=== PATIENT | female | born 1980 | race Caucasian/White ===

== ENCOUNTER 2024-07-21 09:30 | Emergency (ER) | payer BC ==
[2024-07-21 09:36] VITALS: BP 108/67; PULSE 80; RESP 20; TEMP 97.8
[2024-07-21 10:06] LABS: Basophils % (A) 1 %; Eosinophils # (A) 0.2 k/uL (0-0.7); Eosinophils % (A) 3 %; HCT 40.1 % (34.0-46.0); HGB 12.7 gm/dL (11.4-16.0); Lymphocytes # (A) 1.6 k/uL (1.0-4.8); Lymphocytes % (A) 25 %; MCH 27.9 pg (25.0-35.0); MCHC 31.7 g/dL (31.0-37.0); MCV 87.9 fL (80.0-100.0); Mean Platelet Volume 7.5; Monocytes # (A) 0.1 k/uL (0-1.0); Monocytes % (A) 2 %; Neutrophils # (A) 4.4 k/uL (1.3-7.7); Neutrophils % (A) 68 %; Platelet Count 341 k/uL (150-450); RBC 4.56 m/uL (3.80-5.40); RDW 13.6 % (11.5-15.5); WBC 6.5 k/uL (3.8-10.6)
[2024-07-21] MEDS: SODIUM CHLORIDE 0.9% 1,000 ML IV SCH (10:07)
[2024-07-21] MEDS: HYDROmorphone 0.5 MG/0.5 ML SYRINGE IVP STA ×2 (10:07→13:54)
[2024-07-21] MEDS: ONDANSETRON 4 MG/2 ML VIAL IVP STA ×2 (10:07→13:53)
[2024-07-21 10:28] LABS: ALT 45 U/L (4-34); AST 39 U/L (14-36); African American GFR (CKD) 77 (>60 ml/min/1.73 sqM); Albumin 4.4 g/dL (3.5-5.0); Alkaline Phosphatase 93 U/L (38-126); Anion Gap 14 mmol/L; Blood Urea Nitrogen 15 mg/dL (7-17); Calcium 9.5 mg/dL (8.4-10.2); Carbon Dioxide 26 mmol/L (22-30); Chloride 97 mmol/L (98-107); Glucose 134 mg/dL (74-99); Lipase 132 U/L (23-300); Non-African American GFR(CKD) 67 (>60 ml/min/1.73 sqM); Potassium 3.9 mmol/L (3.5-5.1); Sodium 137 mmol/L (137-145); Total Bilirubin 0.8 mg/dL (0.2-1.3); Total Protein 7.3 g/dL (6.3-8.2)
--- NOTE | 2024-07-21 10:31 | ED ---
Abdominal Pain HPI - General Source: patient, RN notes reviewed Mode of arrival: ambulatory Limitations: no limitations <Zhao Rosales - Last Filed: 07/21/24 16:03> <Lesley Ross - Last Filed: 07/25/24 21:47> - General Chief Complaint: Abdominal Pain Stated Complaint: abd pain,vomiting Time Seen by Provider: 07/21/24 09:36 - History of Present Illness Initial Comments: 43-year-old female presents emergency department chief complaint of severe right upper quadrant abdominal pain. Patient states she had a bout of this yesterday but it passed after vomiting. Patient states it started again this morning and states it has been on relentless. Patient states pain radiates. Shoulder back region. Patient denies any chest pain shortness of breath no prior abdominal surgeries denies any chance . No fevers or chills patient states she is very nauseated (Zhao Rosales) - Related Data Previous Rx's Medication Instructions Recorded Cephalexin [Keflex] 500 mg PO Q8HR #21 cap 07/21/24 Allergies Allergy/AdvReac Type Severity Reaction Status Date / Time nitrofurantoin Allergy Nausea & Verified 07/21/24 09:36 [From Macrobid] Vomiting Review of Systems ROS Other: All systems not noted in ROS Statement are negative. <Zhao Rosales - Last Filed: 07/21/24 16:03> ROS Other: All systems not noted in ROS Statement are negative. <Lesley Ross - Last Filed: 07/25/24 21:47> ROS Statement: Those systems with pertinent positive or pertinent negative responses have been documented in the HPI. Past Medical History Past Medical History: GERD/Reflux Additional Past Medical History / Comment(s): kidney stones Past Surgical History: Orthopedic Surgery Past Psychological History: Anxiety, Depression Smoking Status: Never smoker Past Alcohol Use History: Occasional Past Drug Use History: None Reported <Zhao Rosales - Last Filed: 07/21/24 16:03> General Exam Limitations: no limitations General appearance: alert, in no apparent distress Head exam: Present: atraumatic, normocephalic, normal inspection Respiratory exam: Present: normal lung sounds bilaterally. Absent: respiratory distress, wheezes, rales, rhonchi, stridor Cardiovascular Exam: Present: regular rate, normal rhythm, normal heart sounds. Absent: systolic murmur, diastolic murmur, rubs, gallop, clicks GI/Abdominal exam: Present: soft, tenderness, normal bowel sounds. Absent: distended, guarding, rebound, rigid Back exam: Absent: CVA tenderness (R), CVA tenderness (L) <Zhao Rosales - Last Filed: 07/21/24 16:03> Course <Zhao Rosales - Last Filed: 07/21/24 16:03> Vital Signs 07/21/24 09:32 Temperature 97.8 F Pulse Rate 80 Respiratory 20 Rate Blood Pressure 108/67 O2 Sat by Pulse 100 Oximetry - Reevaluation(s) Reevaluation #1: 07/21/24 15:49 Patient reevaluated after initial pain meds after seeing patient in triage hannah patient states she felt improved pending ultrasound and labs. (Zhao Rosales) Reevaluation #2: 07/21/24 15:49 Patient updated on ultrasound findings stating that there was not any significant findings other than dilated common bile duct and CT will be performed. Patient's pain is still under control at this time. (Zhao Rosales) Reevaluation #3: 07/21/24 15:50 CT informed patient was in pain patient was given pain meds and rechecked after pain meds. (Zhao Rosales) Reevaluation #4: 07/21/24 15:[address] findings pending callback from Dr. Paz patient will be given IV antibiotics for UTI (Zhao Rosales) Reevaluation #5: 07/21/24 15:51 Patient advised of conversation with Dr. Barrera on-call surgeon recommend patient to be discharged and follow-up in office now. Patient became very upset stating this is not what she wanted and that she feels that she is not getting the care that she needs. (Zhao Rosales) Medical Decision Making - Lab Data Result diagrams: 07/21/24 10:00 07/21/24 10:00 <Zhao Rosales - Last Filed: 07/21/24 16:03> - Lab Data Result diagrams: 07/21/24 10:00 07/21/24 10:00 <Lesley Ross - Last Filed: 07/25/24 21:47> - Medical Decision Making Was pt. sent in by a medical professional or institution (, MIRIAM, STEP FINISHER, urgent care, hospital, or correction...) When possible be specific @ -No Did you speak to anyone other than the patient for history (EMS, parent, family, police, friend...)? What history was obtained from this source @ -No Did you review nursing and triage notes (agree or disagree)? Why? @ -I reviewed and agree with nursing and triage notes Were old charts reviewed (outside hosp., previous admission, EMS record, old EKG, old radiological studies, urgent care reports/EKG's, correction records)? Report findings @ -No old charts were reviewed Differential Diagnosis (chest pain, altered mental status, abdominal pain women, abdominal pain men, vaginal bleeding, weakness, fever, dyspnea, syncope, headache, dizziness, GI bleed, back pain, seizure, CVA, palpatations, mental health, musculoskeletal)? @ -Differential Abdominal Pain Women: Appendicitis, Cholecystitis, diverticulosis, ischemic bowel, pancreatitis, hepatitis, UTI, gastroenteritis, AAA, incarcerated hernia, bowel obstruction, constipation, inflammatory bowel, hepatitis, peptic ulcer disease, splenic infarction, perforated viscus, vulvitis, ovarian torsion, PID, kidney stone, placenta abruption, this is not meant to be an all-inclusive list EKG interpreted by me (3pts min.). @ -None X-rays interpreted by me (1pt min.). @ -None done CT interpreted by me (1pt min.). @ -CT abdomen pelvis showing no acute intra-abdominal process U/S interpreted by me (1pt. min.). @ -Ultrasound gallbladder showing, bile duct dilation without stones or obstructive process] What testing was considered but not performed or refused? (CT, X-rays, U/S, labs)? Why? @ -None What meds were considered but not given or refused? Why? @ -None Did you discuss the management of the patient with other professionals (professionals i.e. MIRIAM Valles, STEP FINISHER, lab, RT, psych nurse, social sciences professor, commercial designer, teacher, natural resource officer, case supervisor)? Give summary @ -Discussed the case with Dr. Paz on-call surgeon recommends patient to be discharged and follow-up in office as pain is currently controlled. Was smoking cessation discussed for >3mins.? @ -No Was critical care preformed (if so, how long)? @ -No Were there social determinants of health that impacted care today? How? (Homelessness, low income, unemployed, alcoholism, drug addiction, transportation, low edu. Level, literacy, decrease access to med. care, penitentiary, rehab)? @ -No Was there de-escalation of care discussed even if they declined (Discuss DNR or withdrawal of care, Hospice)? DNR status @ -No What co-morbidities impacted this encounter? (DM, HTN, Smoking, COPD, CAD, Cancer, CVA, ARF, Chemo, Hep., AIDS, mental health diagnosis, sleep apnea, morbi d obesity)? @ -None Was patient admitted / discharged? Hospital course, mention meds given and route , prescriptions, significant lab abnormalities, going to OR and other pertinent info. @ -[Discharge patient presented for right upper quadrant abdominal pain. Patient symptoms are more biliary colic in nature. Patient has essentially negative workup with minimal transaminitis and dilated common bile duct. Patient does have a UTI was given Rocephin. Patient updated several times on results and make sure patient was comfortable. Patient states that she does not understand why she is being discharged and became very upset, anxious and angry at staff. Patient stating that she did not have a ride we told her that she could wait for her but he lives over an hour away. We did offer taxicab but she states that this was not an option for her. Patient was explained in thorough detail of what process was. Patient discharged in stable condition Undiagnosed new problem with uncertain prognosis? @ -No Drug Therapy requiring intensive monitoring for toxicity (Heparin, Nitro, Insulin, Cardizem)? @ -No Were any procedures done? @ -No Diagnosis/symptom? @ -bilary colic symtpoms, abd pain, UTI Acute, or Chronic, or Acute on Chronic? @ -acute Uncomplicated (without systemic symptoms) or Complicated (systemic symptoms)? @ -complicated Side effects of treatment? @ -No Exacerbation, Progression, or Severe Exacerbation? @ -No Poses a threat to life or bodily function? How? (Chest pain, USA, DC, pneumonia, PE, COPD, DKA, ARF, appy, cholecystitis, CVA, Diverticulitis, Homicidal, Suici renetta, threat to staff... and all critical care pts) @ -No (Zhao Rosales) - Lab Data Lab Results 07/21/24 07/21/24 07/21/24 Range/Units 10:00 10:00 10:00 WBC 6.5 (3.8-10.6) k/uL RBC 4.56 (3.80-5.40) m/uL Hgb 12.7 (11.4-16.0) gm/dL Hct 40.1 (34.0-46.0) % MCV 87.9 (80.0-100.0) fL MCH 27.9 (25.0-35.0) pg MCHC 31.7 (31.0-37.0) g/dL RDW 13.6 (11.5-15.5) % Plt Count 341 (150-450) k/uL MPV 7.5 Neutrophils % 68 % Lymphocytes % 25 % Monocytes % 2 % Eosinophils % 3 % Basophils % 1 % Neutrophils # 4.4 (1.3-7.7) k/uL Lymphocytes # 1.6 (1.0-4.8) k/uL Monocytes # 0.1 (0-1.0) k/uL Eosinophils # 0.2 (0-0.7) k/uL Basophils # 0.0 (0-0.2) k/uL Sodium 137 (137-145) mmol/L Potassium 3.9 (3.5-5.1) mmol/L Chloride 97 L (98-107) mmol/L Carbon Dioxide 26 (22-30) mmol/L Anion Gap 14 mmol/L BUN 15 (7-17) mg/dL Creatinine 1.02 (0.52-1.04) mg/dL Est GFR (CKD-EPI)AfAm 77 (>60 ml/min/1.73 sqM) Est GFR (CKD-EPI)NonAf 67 (>60 ml/min/1.73 sqM) Glucose 134 H (74-99) mg/dL Plasma Lactic Acid Adi 1.8 (0.7-2.0) mmol/L Calcium 9.5 (8.4-10.2) mg/dL Total Bilirubin 0.8 (0.2-1.3) mg/dL AST 39 H (14-36) U/L ALT 45 H (4-34) U/L Alkaline Phosphatase 93 (38-126) U/L Total Protein 7.3 (6.3-8.2) g/dL Albumin 4.4 (3.5-5.0) g/dL Lipase 132 (23-300) U/L Urine Color Urine Appearance (Clear) Urine pH (5.0-8.0) Ur Specific [place] (1.001-1.035) Urine Protein (Negative) Urine Glucose (UA) (Negative) Urine Ketones (Negative) Urine Blood (Negative) Urine Nitrite (Negative) Urine Bilirubin (Negative) Urine Urobilinogen (<2.0) mg/dL Ur Leukocyte Esterase (Negative) Urine RBC (0-5) /hpf Urine WBC (0-5) /hpf Ur Squamous Epith Cells (0-4) /hpf Urine Bacteria (None) /hpf 07/21/24 Range/Units 11:56 WBC (3.8-10.6) k/uL RBC (3.80-5.40) m/uL Hgb (11.4-16.0) gm/dL Hct (34.0-46.0) % MCV (80.0-100.0) fL MCH (25.0-35.0) pg MCHC (31.0-37.0) g/dL RDW (11.5-15.5) % Plt Count (150-450) k/uL MPV Neutrophils % % Lymphocytes % % Monocytes % % Eosinophils % % Basophils % % Neutrophils # (1.3-7.7) k/uL Lymphocytes # (1.0-4.8) k/uL Monocytes # (0-1.0) k/uL Eosinophils # (0-0.7) k/uL Basophils # (0-0.2) k/uL Sodium (137-145) mmol/L Potassium (3.5-5.1) mmol/L Chloride (98-107) mmol/L Carbon Dioxide (22-30) mmol/L Anion Gap mmol/L BUN (7-17) mg/dL Creatinine (0.52-1.04) mg/dL Est GFR (CKD-EPI)AfAm (>60 ml/min/1.73 sqM) Est GFR (CKD-EPI)NonAf (>60 ml/min/1.73 sqM) Glucose (74-99) mg/dL Plasma Lactic Acid Adi (0.7-2.0) mmol/L Calcium (8.4-10.2) mg/dL Total Bilirubin (0.2-1.3) mg/dL AST (14-36) U/L ALT (4-34) U/L Alkaline Phosphatase (38-126) U/L Total Protein (6.3-8.2) g/dL Albumin (3.5-5.0) g/dL Lipase (23-300) U/L Urine Color Light Yellow Urine Appearance Cloudy H (Clear) Urine pH 6.5 (5.0-8.0) Ur Specific [place] >1.050 H (1.001-1.035) Urine Protein Trace H (Negative) Urine Glucose (UA) Negative (Negative) Urine Ketones Negative (Negative) Urine Blood Large H (Negative) Urine Nitrite Positive H (Negative) Urine Bilirubin Negative (Negative) Urine Urobilinogen <2.0 (<2.0) mg/dL Ur Leukocyte Esterase Negative (Negative) Urine RBC 20 H (0-5) /hpf Urine WBC 6 H (0-5) /hpf Ur Squamous Epith Cells 2 (0-4) /hpf Urine Bacteria Many H (None) /hpf Disposition Is patient prescribed a controlled substance at d/c from ED?: No Time of Disposition: 15:53 <Zhao Rosales - Last Filed: 07/21/24 16:03> <Lesley Ross - Last Filed: 07/25/24 21:47> Clinical Impression: Biliary colic symptom, Abdominal pain, UTI (urinary tract infection) Disposition: HOME SELF-CARE Condition: Stable Instructions (If sedation given, give patient instructions): Abdominal Pain (ED) Additional Instructions: Please return to the Emergency Department if symptoms worsen or any other concerns. Prescriptions: Cephalexin [Keflex] 500 mg PO Q8HR #21 cap Referrals: None,Stated [Primary Care Provider] - 1-2 days Hebert Paz MD [STAFF PHYSICIAN] - 1-2 days
--- NOTE | 2024-07-21 11:15 | US ---
EXAMINATION TYPE: US gallbladder DATE OF EXAM: 07/21/2024 COMPARISON: NONE CLINICAL INDICATION: Female, 43 years old with history of RUQ pain; RUQ pain TECHNIQUE: Grayscale and color Doppler imaging of the right upper quadrant was performed. FINDINGS: EXAM MEASUREMENTS: Liver Length: 16.9 cm Gallbladder Wall: .2 cm CBD: .8 cm Right Kidney: 11.1 x 4.6 x 4.7 cm DITCHER OPERATOR NOTES: Pancreas: Obscured by bowel gas Liver: Increased attenuation no dilated ducts, cysts or suspicious observations. Gallbladder: No stones seen Evidence for sonographic Ruiz's sign: yes CBD: Dilated Right Kidney: No hydronephrosis or masses seen IMPRESSION: 1. No evidence for acute process. 2. Hepatic steatosis. [facility], , 07/21/2024 11:13 AM
--- NOTE | 2024-07-21 13:05 | CT ---
EXAMINATION TYPE: CT abdomen pelvis w con DATE OF EXAM: 07/21/2024 COMPARISON: None CLINICAL INDICATION: Female, 43 years old with history of pain; PHH, RLQ pain, TECHNIQUE: Performed without Oral Contrast and with IV Contrast, patient injected with 100 ml mL of Isovue 300. CT DLP: [address] CTDI: mGy Automated exposure control for dose reduction was used. FINDINGS: The lung bases are clear. The gallbladder is normal without distention, wall thickening, pericholecystic fluid or gallstones. T here is no biliary ductal dilatation. There is no focal mass or organomegaly involving the liver, pancreas, spleen or adrenal glands. There is no solid renal mass or hydronephrosis and there is homogeneous contrast enhancement of the r enal parenchyma. There is a 4.6 mm nonobstructing left renal calculus. There are simple cortical cyst s bilaterally. The dominant cyst is a 6 cm cyst of the mid left kidney The caliber the abdominal aorta is normal is no retroperitoneal adenopathy or hemorrhage. The bowel loops are normal in caliber and there is no evidence of dilatation or obstruction. No infla mmatory changes are identified in the bowel wall or mesentery. The appendix is visualized and is norm al without dilatation or inflammation. There is no free intraperitoneal air or fluid. No pelvic mass, free fluid, abscess or adenopathy. The osseous structures and soft tissues are intact. IMPRESSION: 1. No acute changes within the abdomen or pelvis. 2. 4.6 mm nonobstructing left renal calculus [facility], , 07/21/2024 1:03 PM
[2024-07-21] MEDS: KETOROLAC 15 MG/ML 1 ML VIAL IVP STA (13:53)
[2024-07-21] MEDS: SODIUM CHLORIDE 0.9% 1,000 ML IV ONE (13:54)
[2024-07-21] MEDS: SODIUM CHLORIDE 0.9% 500 ML 500 ML IV ONE (13:59)
[2024-07-21 15:02] LABS: Appearance,Urine Cloudy (Clear); Bacteria,Urine Many /hpf; Bilirubin,Urine Negative (Negative); Blood,Urine Large (Negative); Color,Urine Light Yellow; Glucose,Urine (UA) Negative (Negative); Ketones,Urine Negative (Negative); Leukocyte Esterase,Urine Negative (Negative); Nitrite,Urine Positive (Negative); PH, Urine 6.5 (5.0-8.0); Protein,Urine Trace (Negative); RBC,Urine 20 /hpf (0-5); Squamous Epithelial Cell,Urine 2 /hpf (0-4); Urobilinogen,Urine <2.0 mg/dL (<2.0); WBC,Urine 6 /hpf (0-5)
[2024-07-21 15:11] LABS: Specific Gravity,Urine >1.050 (1.001-1.035)
[2024-07-21] MEDS: cefTRIAXone IN SWFI 1,000 MG/10 ML SYRINGE IVP STA (15:44)
== END 2024-07-21 16:05 | disposition home or self-care (01) ==
LOC: EC 09:30
DX: K80.50 Calculus of bile duct without cholangitis or cholecystitis without obstruction (principal); R10.11 Right upper quadrant pain; N39.0 Urinary tract infection, site not specified; Z88.1 Allergy status to other antibiotic agents
CPT/HCPCS: 36415; 80053; 83605; 83690; 85025; 81001; 76705; 74177; 99284; 96374; 96375; 96376; 96361; J2405; J0696; J1885; J1171; Q9967

== ENCOUNTER → 2024-07-28 | Outpatient (CLI) | payer BC ==
--- NOTE | 2024-07-28 09:31 | NM ---
EXAMINATION TYPE: NM hepatobiliary w CCK DATE OF EXAM: 07/28/2024 COMPARISON: NONE CLINICAL INDICATION: Female, 43 years old with history of R10.84 GEN ABDOMINAL PAIN; TECHNIQUE: After the intravenous administration of 5.32 mCi Tc 99m Mebrofenin hepatobiliary scintigra phy is performed. Immediate images post injection. FINDINGS: There is satisfactory initial accumulation of tracer by the liver. The gallbladder is visualized wit hin 12 minutes. The small bowel activity is noted within 32 minutes. At one hour CCK was administer ed, patient was injected with 2.27 mcg of Kinevac, and gallbladder ejection fraction is calculated at 94 %. IMPRESSION: Increased gallbladder ejection fraction of 94% may reflect a gallbladder hypokinesia. [facility], , 07/28/2024 9:29 AM
== END | disposition home or self-care (01) ==
LOC: RADNMMAIN 06:51
PROVIDERS: ATTEND Surgery
DX: R10.84 Generalized abdominal pain (principal)
CPT/HCPCS: 78227; A9537; J2805

== ENCOUNTER 2024-11-02 11:19 | Emergency (ER) | payer BC, OTHER ==
[2024-11-02 11:28] VITALS: RESP 18
--- NOTE | 2024-11-02 12:35 | ED ---
General Adult HPI - General Chief complaint: Syncope Stated complaint: [facility]-Head Injury Time Seen by Provider: 11/02/24 11:58 Source: patient, RN notes reviewed Mode of arrival: ambulatory Limitations: no limitations - History of Present Illness Initial comments: 44-year-old female presents emergency department complaint of head injury. Patient states she was at work yesterday states that she was working on the he went to go grab the handle out of doors states that she fell striking her head. Patient states that she struck her head on a piece of metal on the left side. She complains of severe headache, neck discomfort. Patient states that she still does not feel well today and presented to the emergency department for evaluation of the head injury. States she does have orthostatic hypotension has had passout episodes in the past she states that she feels better from that standpoint has no concerns of the passout episode. Patient denies any fevers or chills no chest pain no palpitations no other associated symptoms. - Related Data Home Medications Medication Instructions Recorded Confirmed ALPRAZolam [Xanax] 1 mg PO TID PRN 09/28/24 09/30/24 Albuterol Inhaler [Ventolin Hfa 1 - 2 inh INHALATION Q6H PRN 09/28/24 09/30/24 Inhaler] Albuterol Nebulized [Ventolin 2.5 mg INHALATION Q4H PRN 09/28/24 09/30/24 Nebulized] Butalb/Acetaminophen/Caffeine 1 tab PO BID PRN 09/28/24 09/30/24 [Fioricet 50-325-40] Cetirizine HCl [Zyrtec] 10 mg PO DAILY PRN 09/28/24 09/30/24 Cholecalciferol [Vitamin D3 (25 1 tab PO DAILY 09/28/24 09/30/24 Mcg = 1000 Iu)] Cyanocobalamin [Vitamin B-12] 500 mcg PO DAILY 09/28/24 09/30/24 Fluticasone Propion/Salmeterol 1 inh INHALATION DAILY PRN 09/28/24 09/30/24 [Wixela 250-50 Inhub] Magnesium 400 mg PO DAILY 09/28/24 09/30/24 Meclizine HCl 25 mg PO TID PRN 09/28/24 09/30/24 Multivitamin [Multivitamins Adult 1 each PO DAILY 09/28/24 09/30/24 Gummies] Tirzepatide [Mounjaro] 5 mg SQ Q7D 09/28/24 09/30/24 Valerian Root [Valerian] 450 mg PO DAILY 09/28/24 09/30/24 Venlafaxine HCl ER [Effexor Xr] 300 mg PO HS 09/28/24 09/30/24 buPROPion HCL [buPROPion HCL SR] 100 mg PO HS 09/28/24 09/30/24 Previous Rx's Medication Instructions Recorded Acetaminophen Tab [Tylenol] 650 mg PO Q6H #30 tab 09/30/24 Docusate [Colace] 100 mg PO BID #20 capsule 09/30/24 Ibuprofen [Motrin] 600 mg PO Q6HR PRN #40 tab 09/30/24 oxyCODONE HCL [OxyIR] 5 mg PO Q6H PRN 3 Days #10 tab 09/30/24 Allergies Allergy/AdvReac Type Severity Reaction Status Date / Time nitrofurantoin Allergy Nausea & Verified 11/02/24 11:27 [From Macrobid] Vomiting Review of Systems ROS Statement: Those systems with pertinent positive or pertinent negative responses have been documented in the HPI. ROS Other: All systems not noted in ROS Statement are negative. Past Medical History Past Medical History: Asthma, GERD/Reflux Additional Past Medical History / Comment(s): sepsis after 2nd back surgery, kidney stones, chronic cholecystitis, UTI, takes mounjaro for weight loss History of Any Multi-Drug Resistant Organisms: None Reported Past Surgical History: Back Surgery, Orthopedic Surgery Additional Past Surgical History / Comment(s): surgery to correct urinary reflux as a child, back surgery x 3, lithotripsy w/ stent, epidural steroid injections Past Anesthesia/Blood Transfusion Reactions: Previous Problems w/ Anesthesia Additional Past Anesthesia/Blood Transfusion Reaction / Comment(s): anxiety attack immediately after waking up from 2nd back surgery Past Psychological History: Anxiety, Depression Smoking Status: Former smoker Past Alcohol Use History: Rare Past Drug Use History: None Reported - Past Family History Father Family Medical History: Myocardial Infarction (ME) Mother Family Medical History: AFIB General Exam Limitations: no limitations General appearance: alert, in no apparent distress Head exam: Present: atraumatic, normocephalic, normal inspection Eye exam: Present: normal appearance, PERRL, EOMI. Absent: scleral icterus, conjunctival injection, periorbital swelling ENT exam: Present: normal exam, normal oropharynx, mucous membranes moist Neck exam: Present: normal inspection, full ROM. Absent: tenderness, meningismus, lymphadenopathy Respiratory exam: Present: normal lung sounds bilaterally. Absent: respiratory distress, wheezes, rales, rhonchi, stridor Cardiovascular Exam: Present: regular rate, normal rhythm, normal heart sounds. Absent: systolic murmur, diastolic murmur, rubs, gallop, clicks Neurological exam: Present: alert, oriented X3, CN II-XII intact, reflexes normal. Absent: motor sensory deficit Skin exam: Present: warm, dry, intact, normal color. Absent: rash Course Vital Signs 11/02/24 11:21 Temperature 97.9 F Pulse Rate 67 Respiratory 18 Rate Blood Pressure 122/83 O2 Sat by Pulse 96 Oximetry Medical Decision Making - Medical Decision Making Was pt. sent in by a medical professional or institution (, PA, [employer], urgent care, hospital, or snf...) When possible be specific @ -No Did you speak to anyone other than the patient for history (EMS, parent, family, police, friend...)? What history was obtained from this source @ -No Did you review nursing and triage notes (agree or disagree)? Why? @ -I reviewed and agree with nursing and triage notes Were old charts reviewed (outside hosp., previous admission, EMS record, old EKG, old radiological studies, urgent care reports/EKG's, snf records)? Report findings @ -No old charts were reviewed Differential Diagnosis (chest pain, altered mental status, abdominal pain women, abdominal pain men, vaginal bleeding, weakness, fever, dyspnea, syncope, headache, dizziness, GI bleed, back pain, seizure, CVA, palpatations, mental health, musculoskeletal)? @ -Differential Headache: Head trauma, intracranial hemorrhage, skull fracture, cervical progression migraine, tension, cluster, carbon monoxide, central venous thrombosis, pension karma temporal arteritis, acute closure glaucoma, intercranial hemorrhage, ma stoiditis, sinusitis, head injury, this is not meant to be an all-inclusive list. EKG interpreted by me (3pts min.). @ -None X-rays interpreted by me (1pt min.). @ -None done CT interpreted by me (1pt min.). @ -CT brain, C-spine showing no acute intracranial hemorrhage, skull fracture no cervical fracture nU/S interpreted by me (1pt. min.). @ -None done What testing was considered but not performed or refused? (CT, X-rays, U/S, labs)? Why? @ -None What meds were considered but not given or refused? Why? @ -None Did you discuss the management of the patient with other professionals (professionals i.e. , PA, [employer], lab, RT, psych nurse, social work job titles, recapper, teacher, guest services officer, counseling case manager)? Give summary @ -No Was smoking cessation discussed for >3mins.? @ -No Was critical care preformed (if so, how long)? @ -No Were there social determinants of health that impacted care today? How? (Homelessness, low income, unemployed, alcoholism, drug addiction, transportation, low edu. Level, literacy, decrease access to med. care, longterm, rehab)? @ -No Was there de-escalation of care discussed even if they declined (Discuss DNR or withdrawal of care, Hospice)? DNR status @ -No What co-morbidities impacted this encounter? (DM, HTN, Smoking, COPD, CAD, Cancer, CVA, ARF, Chemo, Hep., AIDS, mental health diagnosis, sleep apnea, morbid obesity)? @ -None Was patient admitted / discharged? Hospital course, mention meds given and route, prescriptions, significant lab abnormalities, going to OR and other pertinent info. @ -Discharge patient presented after head injury that happened yesterday. Patient did have severe injury with loss conscious. Patient going severe headache today CT was obtained given his nature which showed no acute process. Patient states that she has reoccurring syncopal episodes was not concerned and did not want a workup for the syncopal episode yesterday. Patient will be discharged in stable condition return parameters discussed Undiagnosed new problem with uncertain prognosis? @ -No Drug Therapy requiring intensive monitoring for toxicity (Heparin, Nitro, Insulin, Cardizem)? @ -No Were any procedures done? @ -No Diagnosis/symptom? @ -Syncope, closed head injury Acute, or Chronic, or Acute on Chronic? @ -Acute Uncomplicated (without systemic symptoms) or Complicated (systemic symptoms)? @ -Complicated Side effects of treatment? @ -No Exacerbation, Progression, or Severe Exacerbation? @ -No Poses a threat to life or bodily function? How? (Chest pain, [place], ME, pneumonia, PE, COPD, DKA, ARF, appy, cholecystitis, CVA, Diverticulitis, Homicidal, Susanna cidal, threat to staff... and all critical care pts) @ -No Disposition Clinical Impression: Syncope, Closed head injury Disposition: HOME SELF-CARE Condition: Stable Instructions (If sedation given, give patient instructions): Head Injury (ED) Additional Instructions: Please return to the Emergency Department if symptoms worsen or any other concerns. Is patient prescribed a controlled substance at d/c from ED?: No Referrals: Nonstaff,Physician [Primary Care Provider] - 1-2 days Time of Disposition: 13:43
--- NOTE | 2024-11-02 13:19 | CT ---
EXAMINATION TYPE: CT brain cspine wo con CT DLP: 1563.6 mGycm, Automated exposure control for dose reduction was used. DATE OF EXAM: 11/02/2024 1:05 PM COMPARISON: None.. CLINICAL INDICATION:Female, 44 years old with history of fall, pain, LOC; FALL, LOC, pain TECHNIQUE: Brain: Multiple axial CT images of the brain were obtained without IV contrast. Cspine: Axial CT images from the skull base to the inferior aspect of T2 we obtained without intraven ous contrast. Coronal and sagittal reformatted images were also reviewed. FINDINGS: Brain: Extra-axial spaces: No abnormal extra-axial fluid collections. Ventricular system: Within normal limits Cerebral parenchyma: No acute intraparenchymal hemorrhage or mass effect. The beth-white junction is well differentiated. Cerebellum: Unremarkable. Mass effect: No evidence of midline shift. Intracranial vasculature: unremarkable Soft tissues: Normal. Calvarium/osseous structures: No depressed skull fracture. Benign hyperostosis frontalis noted. Paranasal sinuses and mastoid air cells: Clear. Visualized orbits: Orbital contents are intact. Cervical spine: Fracture: None. Osseous structures: Unremarkable Vertebral alignment: Within normal limits. Spinal canal/Neural Foramina: No evidence of significant spinal canal narrowing. No evidence for sign ificant neural foraminal stenosis. Neck soft tissues: Prevertebral soft tissues are within normal limits. Other: The airway is patent. The lung apices are clear. IMPRESSION: 1. No acute intracranial process. 2. No evidence of cervical spine fracture. [facility], , 11/02/2024 1:16 PM
[2024-11-02 14:10] VITALS: BP 120/79; PULSE 68; TEMP 97.8
== END 2024-11-02 14:21 | disposition home or self-care (01) ==
LOC: EC 11:19
DX: S09.90XA Unspecified injury of head, initial encounter (principal); R55 Syncope and collapse; Z88.1 Allergy status to other antibiotic agents; Z87.891 Personal history of nicotine dependence; W19.XXXA Unspecified fall, initial encounter; W22.8XXA Striking against or struck by other objects, initial encounter; Y99.0 Civilian activity done for income or pay
CPT/HCPCS: 70450; 72125; 99284